=== PATIENT | male | born 1980 | race Caucasian/White ===

== ENCOUNTER 2023-06-23 03:56 | Observation (INO) | payer OTHER, SELFPAY ==
[2023-06-23] VITALS (13 sets, daily range): BP systolic 105–144; BP diastolic 70–96; PULSE 57–98; RESP 14–20; TEMP 36.5–36.9; O2SAT 96–98; BMI 21.4; BMI 21.3
--- NOTE | 2023-06-23 | PCN_ITS ---
CARDIAC STRESS TEST Requesting Physician:? Procedure Date:? 06/23/2023 This was a treadmill exercise stress test performed at the [facility] on 06/23/2023. Informed consent was obtained.? The patient was attached to electrocardiographic monitoring.? Baseline vital signs and ECG were obtained.? The patient exercised on the treadmill according to the Siddharth protocol for 10 minutes and 26 seconds and reached stage 4 of the Siddharth protocol.? He achieved 13.4 METS.? The test was terminated due to fatigue.? The patient admitted to having discomfort during exercise.? Resting heart rate was 71 BPM and maximum heart rate was 164 BPM, representing 92% of maximal predicted heart rate.?? Resting blood pressure was 138/90 and peak blood pressure was 190/102.? Baseline ECG shows normal sinus rhythm with sinus arrhythmia.? ECG during exercise showed evidence of sinus tachycardia with occasional PVCs.? There was evidence of mild upsloping ST segment depressions seen in the inferolateral leads.? Final ECG showed evidence of sinus tachycardia with no ischemic changes. SUMMARY OF THE FINDINGS: 1.? No evidence of ischemic ECG changes during treadmill exercise stress test. 2.? 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 3.? Non-limiting angina described by the patient during the test. 4.? Resting hypertension and appropriate blood pressure response to exercise. MTDD
--- NOTE | 2023-06-23 04:15 | ED.CHESTPAI1 ---
HPI - Chest Pain General Chief Complaint: Chest Pain Stated Complaint: CHEST PAIN Time Seen by Provider: 06/23/23 04:11 History of Present Illness HPI narrative: presents complaining of chest pain. Started at work tonight. pressure in his left chest and tingling of his arm. took a couple of aspirin at work and it help some. Drove himself here. No past history of heart disease. Daily smoker. No associated nausea or vomiting MD complaint: Reports chest pain Risk Factors Coronary artery disease risk factors: smoking history Related Data Home Medications Medication Instructions Recorded Confirmed No Known Home Medications 06/23/23 06/23/23 Allergies Allergy/AdvReac Type Severity Reaction Status Date / Time No Known Drug Allergies Allergy Verified 06/23/23 04:04 Review of Systems ROS Status of ROS 10 or more systems reviewed and unremarkable except as noted in history and below PFSH PFS Social History Smoking status: Current every day smoker Exam Constitutional Vital Signs, click to edit/add: Last Vital Signs Temp 98.3 F 06/23/23 05:52 Pulse 72 06/23/23 05:52 Resp 20 06/23/23 05:52 BP 105/70 06/23/23 05:52 Pulse Ox 97 06/23/23 05:52 O2 Del Method Room Air 06/23/23 05:52 Common normals: no apparent distress, average body habitus, oriented x3, no limitations, healthy appearing and alert Eye Common normals: PERRL, EOMs intact bilaterally and conjunctivae normal Respiratory Common normals: normal respiratory effort, no retractions, no use of accessory muscles and clear to auscultation bilaterally Cardio Common normals: regular rate, regular rhythm, S1 normal heart sound and S2 normal heart sound GI Common normals: Normal to inspection, nondistended, normoactive bowel sounds present, soft to palpation and non-tender Extremity Common normals: normal to inspection and full ROM Neuro Common normals: CN's II-XII intact bilaterally, moves all extremities, no focal motor deficits and no sensory deficits noted Psych Appearance: grossly normal Course Vital Signs Vital signs: Vital Signs Temperature 98.5 F 06/23/23 03:59 Pulse Rate 95 H 06/23/23 03:59 Respiratory Rate 20 06/23/23 03:59 Blood Pressure 144/96 H 06/23/23 03:59 Pulse Oximetry 98 06/23/23 03:59 Oxygen Delivery Method Room Air 06/23/23 03:59 Temperature 98.3 F 06/23/23 05:52 Pulse Rate 72 06/23/23 05:52 Respiratory Rate 20 06/23/23 05:52 Blood Pressure 105/70 06/23/23 05:52 Pulse Oximetry 97 06/23/23 05:52 Oxygen Delivery Method Room Air 06/23/23 05:52 MDM - Chest Pain MDM Narrative Medical decision making narrative: patient presents from work with acute onset of left sided chest pain with pain radiating into his left ear and tingling of the left arm. EKG is WNL. cxray is clear. Discussed with Dr kang. patient continues to have chest pain. Will admit as observation for workup Lab Data Labs: Lab Results 06/23/23 Range/Units 04:10 WBC 8.4 (4.0-11.0) 10^3/uL RBC 4.93 (4.70-6.10) 10^6/uL Hgb 15.7 (14.0-18.0) g/dL Hct 44.6 (42.0-54.0) % MCV 90.5 (80.0-94.0) fL MCH 31.8 (25.9-34.0) pg MCHC 35.2 (29.9-35.2) g/dL RDW 12.2 (11.0-15.0) % Plt Count 196 (150-450) 10^3/uL MPV 10.5 (9.5-13.5) fL Neut % (Auto) 69.0 (43.0-75.0) % Lymph % (Auto) 20.5 (20.5-60.0) % Hardin % (Auto) 8.2 (1.7-12.0) % Eos % (Auto) 0.7 L (0.9-7.0) % Baso % (Auto) 0.8 (0.2-2.0) % Neut # (Auto) 5.8 (1.4-6.5) 10^3/uL Lymph # (Auto) 1.7 (1.2-3.8) 10^3/uL Hardin # (Auto) 0.7 (0.3-0.8) 10^3/uL Eos # (Auto) 0.1 (0.0-0.7) 10^3/uL Baso # (Auto) 0.1 (0.0-0.1) 10^3/uL Abs Immat Gran (auto) 0.07 H (0.00-0.03) 10^3/uL Imm/Tot Granulo (auto) 0.8 H (0.0-0.5) % D-Dimer <0.19 (<=0.59) mg/L FEU Sodium 142 (136-145) mmol/L Potassium 3.3 L (3.5-5.1) mmol/L Chloride 104 (98-107) mmol/L Carbon Dioxide 25.1 (21.0-32.0) mmol/L Anion Gap 16.2 BUN 6.0 L (7.0-18.0) mg/dL Creatinine 1.01 (0.70-1.30) mg/dL Est GFR ( Amer) >60 (>=60) Est GFR (Non-Af Amer) >60 (>=60) BUN/Creatinine Ratio 5.9 Glucose 124 H (74-106) mg/dL Calcium 8.8 (8.5-10.1) mg/dL Troponin I High Sens <4.0 L (4.0-76.1) pg/mL Discharge Plan Discharge Chief Complaint: Chest Pain Clinical Impression: Chest pain Patient Disposition: Admitted as Observation Prescriptions / Home Meds: No Action No Known Home Medications Referrals: Physician,Non-Staff, MD [Primary Care Provider] - 1 week
--- NOTE | 2023-06-23 04:17 | ECG_ITS ---
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
[2023-06-23 04:22] LABS: Basophils Absolute Auto 0.1 10^3/uL (0.0-0.1); Basophils Percent Auto 0.8 % (0.2-2.0); Eosinophils Absolute Auto 0.1 10^3/uL (0.0-0.7); Eosinophils Percent Auto 0.7 % (0.9-7.0); Hematocrit 44.6 % (42.0-54.0); Hemoglobin 15.7 g/dL (14.0-18.0); Immature Granulocytes Abs Auto 0.07 10^3/uL (0.00-0.03); Immature Granulocytes Pct Auto 0.8 % (0.0-0.5); Lymphocytes Absolute Auto 1.7 10^3/uL (1.2-3.8); Lymphocytes Percent Auto 20.5 % (20.5-60.0); Mean Corpuscular HGB Conc 35.2 g/dL (29.9-35.2); Mean Corpuscular Hemoglobin 31.8 pg (25.9-34.0); Mean Corpuscular Volume 90.5 fL (80.0-94.0); Mean Platelet Volume 10.5 fL (9.5-13.5); Monocytes Absolute Auto 0.7 10^3/uL (0.3-0.8); Monocytes Percent Auto 8.2 % (1.7-12.0); Neutrophils Absolute Auto 5.8 10^3/uL (1.4-6.5); Platelet Count 196 10^3/uL (150-450); Red Blood Count 4.93 10^6/uL (4.70-6.10); Red Cell Distribution Width 12.2 % (11.0-15.0); White Blood Count 8.4 10^3/uL (4.0-11.0)
[2023-06-23] MEDS: NITROGLYCERIN 0.4 MG TAB.SUBL PO (04:27)
[2023-06-23 04:38] LABS: D Dimer <0.19 mg/L FEU (<=0.59)
--- NOTE | 2023-06-23 04:40 | XR_ITS ---
The [address] [address] Patient Name: HEIDI GARIBAY MRN: [id number] date: 1980 Sex: M Assigned Patient Location: ER Current Patient Location: ED.MAIN Accession/Order Number: [id number] Exam Date: 06/23/2023 04:35 Report Date: 06/23/2023 04:57 At the request of: DAHIANA WHITT Procedure: XR chest 1V EXAM: XR chest 1V HISTORY: chest pain COMPARISON: Chest radiographs dated 12/19/2018. TECHNIQUE: One view of the chest was obtained. FINDINGS: The cardiac silhouette is stable in size. The lungs are clear. There is no significant pneumothorax or pleural effusion. No acute osseous abnormality is seen. XR/XR chest 1V IMPRESSION: 1. No acute cardiopulmonary abnormality. Electronically authenticated by: Makayla TORRES Date: 06/23/2023 04:57
[2023-06-23 04:41] LABS: Anion Gap 16.2; BUN Creatinine Ratio 5.9; Calcium 8.8 mg/dL (8.5-10.1); Carbon Dioxide 25.1 mmol/L (21.0-32.0); Chloride 104 mmol/L (98-107); Estimated GFR (African America >60 (>=60); Estimated GFR (Non-African Ame >60 (>=60); Glucose 124 mg/dL (74-106); Potassium 3.3 mmol/L (3.5-5.1); Sodium 142 mmol/L (136-145); Troponin I High Sensitivity <4.0 pg/mL (4.0-76.1)
--- NOTE | 2023-06-23 05:32 | PC.NURSE ---
No results from mineral oil fleets. Soap suds enema started.
[2023-06-23] MEDS: POTASSIUM CHLORIDE 10 MEQ ER TABLET 40 MEQ PO (05:58)
--- NOTE | 2023-06-23 07:33 | ECG_ITS ---
The [facility] Test Date: 2023-06-23 Pat Name: HEIDI GARIBAY Department: Room: 214 Gender: Male Payroll Processor: : 1980 Requested By: SHAIKH PING Order Number: [id number] Reading MD: RENE CARO Measurements Intervals [place] Rate: 80 P: [place]: QRS: 86 QRSD: 90 T: 60 QT: 337 QTc: 391 Interpretive Statements SINUS RHYTHM Electronically Signed On 06-24-2023 6:59:21 EDT by RENE CARO
--- NOTE | 2023-06-23 07:35 | CA_ITS ---
Patient: HEIDI GARIBAY Exam Date: 06/23/2023 : 1980 Gender:M Ordering : Shaikh Yue Fuller . Admission #: [id number] Family : Order #: [id number] CLICK HERE TO VIEW EXAM ECHOCARDIOGRAM REPORT PROCEDURE: CA ECHO DOPPLER COMPLETE INDICATIONS: Chest pain, smoker COMPARISON: None. DESCRIPTION: COMPLETE ECHOCARDIOGRAM Real-time transthoracic echocardiography with 2D, M-mode, spectral and color flow Doppler performed. QUALITY: Technical quality was good. LEFT VENTRICLE: Normal chamber size. Normal left ventricular wall thickness. Global left ventricular systolic function is normal. LV EF: Normal left ventricular ejection fraction, (>55%). DIASTOLIC: Normal diastolic function. ATRIAL SEPTUM: Visually appears intact. LEFT ATRIUM: Normal chamber size. RIGHT ATRIUM: Normal chamber size. RIGHT VENTRICLE: Normal chamber size. Normal right ventricular systolic function. TRICUSPID VALVE: Normal mobility and thickness. No stenosis with trivial regurgitation. No evidence of pulmonary hypertension. RVSP 31 mmHg MITRAL VALVE: Normal mobility and thickness. No evidence of mitral valve stenosis. There is no mitral annular calcification. Trivial mitral regurgitation. AORTIC VALVE: Normal trileaflet appearance. No visible sclerosis. Normal leaflet mobility. No evidence of aortic valve stenosis. No aortic regurgitation. AORTIC ROOT: Normal diameter and appearance. PULMONIC VALVE: Normal thickness and mobility. No stenosis. No regurgitation. PERICARDIUM: No evidence of pericardial effusion. IVC: Collapses with inspirations. IVC is normal in size. CONCLUSION: Global left ventricular systolic function is normal; visually estimated ejection fraction is 55 to 60%. No significant wall motion abnormalities. Normal diastolic function. The right ventricle is normal in size and systolic function. No significant valvular abnormalities. Adult Echocardiography Procedure Report Left Ventricle LVEDD (3.7 - 5.6 cm): 4.25 cm LVESD (2.2 - 4.0 cm): 3.21 cm LVIVS thickness (0.6 - 1.2 cm): 0.96 cm LVPW thickness (0.5 - 1.0 cm): 0.94 cm e': 0.19 m/s E - e': 3.91 LVOT Max Gradient: 3.89 mm[Hg] LVOT Area (cm2): 0.99 m/s Peak Velocity (LVOT): 0.99 m/s Mean Velocity (LVOT): 0.67 m/s LVOT Diameter 2.39 cm Left Atrium LA Volume Index (2D A2C): 23.72 ml/m2 Left Atrium Systolic Dimension: 2.93 cm Mitral Valve MV E to A Ratio: 1.67, 1.67 Mitral Valve A-Wave Peak Velocity: 0.43 m/s Mitral Valve E-Wave Peak Velocity: 0.72 m/s Right Ventricle Aorta AO Root Diam: 3.55 cm Ascending Ao Diam: 2.53 cm Aortic Valve AoV Area (Peak Adalberto): 4.43 cm2, 4.43 cm2 AoV Area (VTI): 4.79 cm2, 4.79 cm2 Peak Velocity(Antegrade Flow): 1.00 m/s Peak Gradient(Antegrade Flow): 4.02 mm[Hg] Mean Velocity(Antegrade Flow): 0.67 m/s Mean Gradient(Antegrade Flow): 2.08 mm[Hg] Velocity Time Integral: 17.15 cm Tricuspid Valve Peak Velocity (Regurgitant Flow): 2.64 m/s Pulmonic Valve Peak Velocity: 0.95 m/s Peak Gradient: 4.10 mm[Hg], 3.21 mm[Hg] Right Atrium Right Atrium Systolic Pressure: 37.50 ml, 37.50 ml Dictated by: Dayton Ferguson M.D. on 06/23/2023 at 14:00 Approved by: Dayton Ferguson M.D. on 06/23/2023 at 14:02
[2023-06-23 08:13] LABS: Estimated Average Glucose 108 mg/dL; Glycohemoglobin A1C 5.4 % (4.5-6.2)
[2023-06-23 08:23] LABS: Chol HDL Ratio 2.5; Cholesterol 119 mg/dL (<=200); HDL Cholesterol 47 mg/dL (40-60); LDL Cholesterol Calculated 58.4 mg/dL; Triglycerides 68 mg/dL (<=150); Troponin I High Sensitivity 4.3 pg/mL (4.0-76.1); VLDL CHOLESTEROL 13.6 mg/dL
--- NOTE | 2023-06-23 10:33 | CM.NOTE ---
Rounds made with juan a Mendoza to discharge to skilled rehab ([facility]) when precert completed.
--- NOTE | 2023-06-23 10:38 | CM.NOTE ---
Rounds made with Dr. Fuller, discussed plan of care with pt. Pt will have treadmill stress today, XR neck and shoulder, echo today. If testing negative can discharge to home.
--- NOTE | 2023-06-23 11:24 | PM.HP ---
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 W/u in ED was unremarkable with normal electrolytes, CBC, Negative troponins, and d dimer. Patient however, continues to feel similar discomfort in his chest and now has more tingling/numbing sensation to his left UE. He has no prior hx of cardiac testing. He denies any associated symptoms including SOB, palpitations, nausea, vomiting, reflux or abdominal pain. His work is quite strenuous and he has never experienced similar symptoms in the past. He currently smokes cig and occasionally marijuana too. Denies hx of premature CAD in family. Patient is quite concerned and worried about his symptoms and was asking for something for pain relief. Review of Systems ROS Status of ROS 10 or more systems reviewed and unremarkable except as noted in history and below [facility] Medical History Surgical History Family History Father Family history of myocardial infarction Grandfather Family history of myocardial infarction Social History Within the past year, how often did you have a drink containing alcohol: 4 or more times a week Within the past year, how many standard drinks containing alcohol did you have on a typical day: 5 or 6 Within the past year, how often did you have six or more drinks on one occasion: weekly Total score: 7 Score interpretation: A score of 4 or more indicates drinking is likely to affect patient's safety. Smoking status: Current every day smoker Non-prescribed substance use: cannabis (any form) Known occupational exposures/hazards: No Do you think of yourself as: straight/heterosexual Gender Identity: male Meds Home Medications and Allergies Home Medications Medication Instructions Recorded Confirmed Type No Known Home Medications 06/23/23 06/23/23 History Allergies Allergy/AdvReac Type Severity Reaction Status Date / Time No Known Drug Allergies Allergy Verified 06/23/23 04:04 Exam Constitutional Vital Signs, click to edit/add: Last Vital Signs Temp 97.8 F 06/23/23 07:56 Pulse 82 06/23/23 10:07 Resp 18 06/23/23 07:56 BP 134/89 06/23/23 07:56 Pulse Ox 98 06/23/23 10:15 O2 Del Method Room Air 06/23/23 10:15 Documenting provider has reviewed patient's vital signs: yes Common normals: no apparent distress and oriented x3 HENMT Common normals: normocephalic and head/scalp atraumatic Head and scalp: normocephalic and atraumatic Eye Common normals: PERRL, EOMs intact bilaterally, conjunctivae normal, no scleral icterus and normal visual watts by confrontation General eye: normal appearance of both eyes and normal light reflex Eyelid: eyelids normal Conjunctiva: conjunctiva(e) normal Sclera: sclerae normal Pupil: PERRL Neck & C-Spine Common normals: supple, no meningeal signs and no JVD General: normal visual inspection and trachea midline Cervical spine: pain with cervical ROM with lateral flexion to the right Chest Common normals: inspection of chest normal and palpation of chest normal Respiratory Common normals: normal respiratory effort and clear to auscultation bilaterally Auscultation: clear to auscultation bilaterally Cardio Common normals: regular rate, regular rhythm, S1 normal heart sound and S2 normal heart sound Rate: regular rate Rhythm: regular rhythm Heart sounds: S1 normal and S2 normal GI Common normals: Normal to inspection, nondistended, normoactive bowel sounds present, soft to palpation, non-tender and no hepatosplenomegaly Palpation: soft and no hepatosplenomegaly Extremity Common normals: normal to inspection, full ROM and no clubbing, cyanosis or edema Neuro Common normals: oriented x3, CN's II-XII intact bilaterally, moves all extremities, no focal motor deficits and no sensory deficits noted Meningeal signs: no meningeal signs Coordination/balance: [id number] test normal Speech: speech normal Gait (neuro): normal gait Motor exam: strength 5/5 throughout, no tremor noted and muscle tone normal throughout Coordination: [id number] test normal Psych Psychiatry clinicians, please identify where your Mental Status Exam is documented: Mental Status Exam documented in the separate MSE Common normals: mental status grossly normal, thought process normal, denies hallucinations, denies homicidal ideation and denies suicidal ideation Thought process: normal thought process Results Labs Labs: Short CBC 06/23/23 Range/Units 04:10 WBC 8.4 (4.0-11.0) 10^3/uL Hgb 15.7 (14.0-18.0) g/dL Hct 44.6 (42.0-54.0) % Plt Count 196 (150-450) 10^3/uL BMP 06/23/23 04:10 Sodium 142 Potassium 3.3 L Chloride 104 Carbon Dioxide 25.1 BUN 6.0 L Creatinine 1.01 Glucose 124 H Calcium 8.8 Assessment and Plan Assessment and Plan (1) Chest pain: Assessment and Plan: Persistent left sided chest pain with radiation to left neck and LUE EKG shows RBBB. Negative troponin. HEART score 3 2D ECHO to assess cardiac structure. Exercise stress test ordered as patient continues to have persistent symptoms Reassess after testing finalized. Qualifiers: Chest pain type: unspecified Qualified Code(s): R07.9 - Chest pain, unspecified (2) Neck pain on left side: Assessment and Plan: Suspect his symptoms could be musculoskeletal and originating from cervical spine Will get cervical spine XR One time dose of Toradol and orphenadrine to see if his pain eases off. Re assess after medications, stress test. (3) Smoker: Assessment and Plan: Discussed smoking cessation. Will defer to outpatient for treatment (4) Alcohol use disorder: Assessment and Plan: Drinks quite heavily, almost on a daily basis. Will need counseling and education on it. Was not discussed this encounter as I was focused on dealing with his acute problems.
--- NOTE | 2023-06-23 11:28 | XR_ITS ---
[address] [address] Patient Name: HEIDI GARIBAY MRN: [id number] date: 1980 Sex: M Assigned Patient Location: MS Current Patient Location: MS Accession/Order Number: [id number] Exam Date: 06/23/2023 11:20 Report Date: 06/23/2023 13:58 At the request of: SHAIKH PING Procedure: XR cervical spine 2-3V EXAM: XR cervical spine 2-3V HISTORY: neck pain COMPARISON: None. TECHNIQUE: 3 views FINDINGS: Satisfactory alignment. Maintained vertebral body heights and disc spaces. No acute fracture or subluxation. Unremarkable soft tissues. XR/XR cervical spine 2-3V IMPRESSION: No acute fracture or subluxation. Electronically authenticated by: JOSÉ MIGUEL VARNER Date: 06/23/2023 13:58
[2023-06-23] MEDS: ORPHENADRINE 60 MG/ 2 ML VIAL IV (11:38)
[2023-06-23] MEDS: KETOROLAC TROMETHAMINE 30 MG/ML VIAL IVP (11:39)
--- NOTE | 2023-06-23 13:58 | SWNOTE1 ---
SW met with pt to discuss alcohol/possible marijuana use. Pt was lying down in bed, answered a few questions, opened his eyes for a few questions, but mostly kept eyes closed and responded with 1 word answers. SW addressed pt's drinking, but pt did not tell SW how much he drank or how often. CLINT asked 2x if pt would like any resources, such as AA meetings or counseling information, but pt at this time refused. SW asked pt about his support at home, but pt did not answer. SW let pt know SW to check back tomorrow, which then prompted pt to ask if he was going to leave tonight. SW let pt know SW to ask nurse. Pt also stated he needed a water and a menu which he asked for awhile ago. SW let nursing know and pt was brought water and menu.
[2023-06-23 14:58] LABS: Troponin I High Sensitivity 4.8 pg/mL (4.0-76.1)
--- NOTE | 2023-06-29 14:32 | CM.DCFOLLOWU ---
3 attempts were made for discharge follow up call, no answer each time.
== END 2023-06-23 17:55 | disposition home or self-care (01) ==
LOC: ER 06:34 → MS 07:27
PROVIDERS: Admitting Provider Internal Medicine; Emergency Provider Internal Medicine; Visit Provider Internal Medicine
DX: R07.9 Chest pain, unspecified (principal); F17.210 Nicotine dependence, cigarettes, uncomplicated; M54.2 Cervicalgia; F10.90 Alcohol use, unspecified, uncomplicated
CPT/HCPCS: 36415; 71045; 72040; 80048; 80061; 83036; 84484; 85025; 85378; 93005; 93017; 93306; 94761; 96374; 96375; 99285; G0378